=== PATIENT | female | born 1935 | race Caucasian/White ===

== ENCOUNTER 2018-01-15 11:08 | Emergency (ER) | payer MEDICARE ==
--- NOTE | 2018-01-15 18:11 | RAD ---
HISTORY: Left foot pain, injury COMPARISONS: None VIEWS: 3 , Frontal, lateral, and oblique views of the left foot FINDINGS: BONE DENSITY: There is diffuse osteopenia. BONES: There is no displaced fracture. JOINTS: There is no arthropathy. ALIGNMENT: There is no dislocation. SOFT TISSUES: There is soft tissue swelling of the forefoot. OTHER FINDINGS: None. IMPRESSION: 1. OSTEOPENIA. 2. SOFT TISSUE SWELLING. 3. NO ACUTE OSSEOUS INJURY. THE DEGREE OF OSTEOPENIA MAY MAKE A NONDISPLACED FRACTURE RADIOGRAPHICALLY OCCULT. IF SYMPTOMS PERSIST, RECOMMEND REPEAT IMAGING.
--- NOTE | 2018-01-15 21:21 | UC ---
- Progress Note Progress Note: Patient Name: STONE BARCLAY Medical Record#: [id number] Ordering Physician: [facility] Acct.#: [id number] : 1935 Age: 82 Sex: F Location: [facility] Exam Date: 01/15/18 ADM Status: PRE ER Order Information: FOOT LEFT 3+ VWS Accession Number: [id number] CPT: 46068 HISTORY: Left foot pain, injury COMPARISONS: None VIEWS: 3 , Frontal, lateral, and oblique views of the left foot FINDINGS: BONE DENSITY: There is diffuse osteopenia. BONES: There is no displaced fracture. JOINTS: There is no arthropathy. ALIGNMENT: There is no dislocation. SOFT TISSUES: There is soft tissue swelling of the forefoot. OTHER FINDINGS: None. IMPRESSION: 1. OSTEOPENIA. 2. SOFT TISSUE SWELLING. 3. NO ACUTE OSSEOUS INJURY. THE DEGREE OF OSTEOPENIA MAY MAKE A NONDISPLACED FRACTURE RADIOGRAPHICALLY OCCULT. IF SYMPTOMS PERSIST, RECOMMEND REPEAT IMAGING. <Electronically signed by Chilo Pineda MD in OV> 01/15/181807 Dictated By: Chilo Pineda MD Dictated Date/Time: 01/15/181807 Transcribed Date/Time: 01/15/18 1229 Copy to: CC:[facility]; Brook Ramirez MD Imaging - [facility] Imaging [facility] [address] [address] ph ([phone]) ph ([phone]) ph ([phone]) This report is only to be considered final once signed by the Provider(s) as displayed in the "<Electronically Signed by >" field (s). Absence of a signature indicates the report is in a draft status and still needs to be finalized. In the event this document was created by someone other than the signing Provider, the individual initiating the document will be listed in the "Entered by:" or "Dictated by:" mckeon. 1 of 1 Discharge - Sign-Out/Discharge Documenting (check all that apply): Post-Discharge Follow Up All imaging exams completed and their final reports reviewed: Yes - Discharge Plan Referrals: Brook Ramirez MD [Primary Care Provider] -
== END 2018-01-15 14:10 | disposition home or self-care (01) ==
LOC: UCCORT 12:18
DX: S90.32XA Contusion of left foot, initial encounter (principal); S93.602A Unspecified sprain of left foot, initial encounter; W19.XXXA Unspecified fall, initial encounter; Y93.9 Activity, unspecified; Y92.009 Unspecified place in unspecified non-institutional (private) residence as the place of occurrence of the external cause; M85.872 Other specified disorders of bone density and structure, left ankle and foot; I10 Essential (primary) hypertension
CPT/HCPCS: 99213; G0463

== ENCOUNTER 2019-03-13 14:16 | Emergency (ER) | payer MEDICARE ==
--- OUTSIDE RECORDS SUMMARY | 2019-03-13 14:49 | XMS REPORT | Continuity of Care Document ---
:1935 External Reference #:[id number] Author Name Angus Mitchell M.D. (transmitted by agent of provider Dwain Chinchilla) Address [address] [facility], [place] [address] Care Team Providers Name Role Phone Brook Ramirez MD - Internal Medicine Care Team Information Wine Steward/Stewardess Problems Active Problems Provider Date Alzheimer's disease Angus Mitchell M.D. Onset: 09/23/2018 Social History Type Date Description Comments Sex Unknown Tobacco Use Start: Unknown Never Smoked Cigarettes Smoking Status Reviewed: 01/27/19 Never Smoked Cigarettes ETOH Use Consumes 3 glasses of wine per week Tobacco Use Start: Unknown Patient has never smoked Recreational Drug Use Denies Drug Use Allergies, Adverse Reactions, Alerts Description No Known Drug Allergies Medications Active Medications SIG Qnty Indications Ordering Provider Date Memantine HCL 1 by mouth twice 60tabs G30.1 Angus Mitchell, 01/27/2019 5mg a day M.D. Tablets Fosamax take 1 tablet by Unknown 70mg Tablets mouth once weekly Aspirin 81 1 by mouth every Unknown 81mg day Tablets DR Lipitor 1 by mouth at Unknown 40mg Tablets bedtime Calcium Citrate + D 1 tab by mouth Unknown every day [id number] Tablets Vitamin D 1 Tab by mouth Unknown 1000Unit everyday Tablets Aricept 1 tab by mouth 90tabs Angus Mitchell, 10mg Tablets every night M.D. Latanoprost 1 drop every Unknown 0.005% night Solution Synthroid 1 by mouth every Unknown 50mcg day Tablets Lisinopril 1 by mouth every Unknown 10mg day Tablets Claritin 1 by mouth every 30caps Unknown 10mg day as needed Capsules Metoprolol Succinate 1 by mouth twice 30tabs Unknown ER a day 25mg Tablets ER 24HR Multivitamin Adult 1 by mouth every Unknown day Tablets Timolol Maleate 1 drop both eyes Unknown 0.5% every morning Solution History Medications Memantine HCL 1 by mouth at 90tabs G30.1 Angus Mitchell, 09/23/2018 - 5mg night HersonDApryl 01/27/2019 Tablets Immunizations Description No Information Available Vital Signs Date Vital Result Comment 01/27/2019 2:48pm Height 63 inches 5'3" Weight 111.25 lb Heart Rate 71 /min BP Systolic Sitting 127 mmHg BP Diastolic Sitting 68 mmHg Respiratory Rate 14 /min Body Temperature 98.3 F Pain Level 0 O2 % BldC Oximetry 96 % BMI (Body Mass Index) 19.7 kg/m2 09/23/2018 11:05am Height 63 inches 5'3" Weight 115.00 lb Heart Rate 87 /min BP Systolic 110 mmHg BP Diastolic 76 mmHg BMI (Body Mass Index) 20.4 kg/m2 Results Description No Information Available Procedures Description No Information Available Medical Devices Description No Information Available Encounters Type Date Location Provider Dx Diagnosis [facility]a [facility] Cannon disease with late [facility] onset Assessments Date Code Description Provider 01/27/2019 G30.1 Alzheimer's disease with late onset Angus Mitchell M.D. 09/23/2018 G30.1 Alzheimer's disease with late onset Angus Mitchell M.D. Plan of Treatment Future Appointment(s):06/02/2019 2:15 pm - Angus Mitchell M.D. at [facility]01/27/2019 - Angus Mitchell M.D.G30.1 Alzheimer' s disease with late onsetNew Medication:Memantine HCL 5 mg - 1 by mouth twice a dayFollow up:Follow up in 4 monthsRecommendations:Call me in 1 month. If you are doing ok, we will increase the Memantine further. The plan is to get you to 10mg twice a day. Functional Status Description No Information Available Mental Status Description No Information Available Referrals Description No Information Available
[2019-03-13 15:11] VITALS: BP 133/64
--- NOTE | 2019-03-13 15:22 | UC ---
Respiratory Complaint HPI - HPI Summary HPI Summary: Pt present with c/o gradual onset of cough, nasal congestion and ST X 3-4 days. Pt has dementia and lives with daughter. Pt's is currently in hospital due perforated bowel. Pt's daughter and recently had bronchitis. - History of Current Complaint Chief Complaint: UCRespiratory Stated Complaint: COUGH, CONGESTION Time Seen by Provider: 03/13/19 15:08 Hx Obtained From: Family/Transportation Project Manager Hx From Patient Unobtainable Due To: Dementia ?: No Onset/Duration: Gradual Onset, Lasting Days, Still Present Timing: Constant Severity Initially: Mild Severity Currently: Mild Pain Intensity: 0 Aggravating Factors: Exertion, Deep Breaths, Recumbent Position Alleviating Factors: Nothing Associated Signs And Symptoms: Positive: URI, Nasal Congestion, Hoarseness - Risk Factors Pulmonary Embolism Risk Factors: Negative Cardiac Risk Factors: Negative Tuberculosis Risk Factors: Negative - Allergies/Home Medications Allergies/Adverse Reactions: Allergies Allergy/AdvReac Type Severity Reaction Status Date / Time No Known Allergies Allergy Verified 03/13/19 14:58 Home Medications: Home Medications Donepezil TAB* [Aricept 5 MG TAB*] 10 mg PO DAILY 03/13/19 [History Confirmed ] Memantine HCl 5 mg PO BID 03/13/19 [History Confirmed 03/13/19] PMH/Surg Hx/FS Hx/Imm Hx Previously Healthy: Yes Cardiovascular History: Cardiac Disease Neurological History: Dementia - Surgical History Surgical History: Yes Surgery Procedure, Year, and Place: CABG x4. Aortic valve replacement. AAA repair. Gallblader. Cataracts. Appy. Hysterectomy. Left Mastecomy - Family History Known Family History: Positive: Other - no related gi illness. - Social History Occupation: Retired Lives: With Family Alcohol Use: Occasionally Substance Use Type: None Smoking Status (MU): Never Smoked Tobacco Have You Smoked in the Last Year: No - Immunization History Vaccination Up to Date: Yes Review of Systems All Other Systems Reviewed And Are Negative: Yes Constitutional: Positive: Fatigue Skin: Positive: Negative Eyes: Positive: Negative ENT: Positive: Sore Throat, Sinus Congestion Respiratory: Positive: Cough Cardiovascular: Positive: Negative Gastrointestinal: Positive: Negative Genitourinary: Positive: Negative Motor: Positive: Negative Neurovascular: Positive: Negative Musculoskeletal: Positive: Negative Neurological: Positive: Negative Psychological: Positive: Negative Is Patient Immunocompromised?: No Physical Exam Triage Information Reviewed: Yes Appearance: Well-Appearing Vital Signs: Initial Vital Signs Temp 99.8 F 03/13/19 14:59 Pulse 60 03/13/19 14:59 Resp 20 03/13/19 14:59 BP 133/64 03/13/19 14:59 Pulse Ox 100 03/13/19 14:59 Vital Signs Reviewed: Yes Eye Exam: Normal ENT: Positive: Nasal congestion Dental Exam: Normal Neck exam: Normal Neck: Positive: Supple, Nontender, No Lymphadenopathy Respiratory: Positive: Wheezing - RLL Cardiovascular Exam: Normal Musculoskeletal Exam: Normal Neurological Exam: Normal Psychological Exam: Normal Skin Exam: Normal Respiratory Course/Dx - Course Course Of Treatment: Due to pt's extremes of age and her dementia, I discussed with the pt's immediate caregiver/daughter the use of antibiotics vs viral illness. Pt's caregiver requested an antibiotic. - Differential Dx/Diagnosis Differential Diagnosis/HQI/PQRI: Bronchitis, Exacerbation Of COPD, Other - pneumonia Provider Diagnosis: Wheezing on inspiration, Cough in adult Discharge ED - Sign-Out/Discharge Documenting (check all that apply): Patient Departure All imaging exams completed and their final reports reviewed: No Studies - Discharge Plan Condition: Stable Disposition: HOME Prescriptions: Amoxicillin PO (*) [Amoxicillin 500 MG CAP*] 500 mg PO Q12H #20 cap Patient Education Materials: Acute Cough (ED), Wheezing (ED) Referrals: Brook Ramirez MD [Primary Care Provider] - If Needed - Billing Disposition and Condition Condition: STABLE Disposition: Home
== END 2019-03-13 15:33 | disposition home or self-care (01) ==
LOC: UCCORT 14:16
DX: R06.2 Wheezing (principal); R05 Cough; J02.9 Acute pharyngitis, unspecified; J34.89 Other specified disorders of nose and nasal sinuses; F03.90 Unspecified dementia, unspecified severity, without behavioral disturbance, psychotic disturbance, mood disturbance, and anxiety; Z95.1 Presence of aortocoronary bypass graft
CPT/HCPCS: 99212; G0463

== ENCOUNTER 2019-03-31 15:27 | Emergency (ER) | payer MEDICARE ==
--- OUTSIDE RECORDS SUMMARY | 2019-03-31 16:42 | XMS REPORT | Continuity of Care Document ---
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 Active Problems Provider Date Coronary arteriosclerosis Brook Ramirez MD Onset: 01/05/2013 Benign essential hypertension Brook Ramirez MD Onset: 01/05/2013 Hyperlipidemia Brook Ramirez MD Onset: 01/05/2013 Hypothyroidism Brook Ramirez MD Onset: 01/05/2013 Vitamin D deficiency Brook Ramirez MD Onset: 01/05/2013 Minimal cognitive impairment Brook Ramirez MD Onset: 11/23/2014 Social History Type Date Description Comments Sex Unknown ETOH Use Occasionally consumes alcohol Tobacco Use Start: Unknown Patient has never smoked Allergies, Adverse Reactions, Alerts Description No Known Drug Allergies Medications Active Medications SIG Qnty Indications Ordering Date Provider Shingrix 1 dose intramuscular 2doses Brook Ramirez MD 10/06/2017 50mcg then repeat in 4 Suspension Rec month Aspirin 1 by mouth every day Brook Ramirez MD 03/13/2017 81mg Tablets Lisinopril 1 by mouth every day 90tabs Brook Ramirez MD 12/13/2013 10mg Tablets L Prosthetic For Bra as directed for dx 2carlos enrique Ramirez MD 08/30/2013 mastectomy Mastecotmy Bra l sided for dx 2undixie Ramirez MD 08/18/2013 breast cancer and mastectomy Clobetasol as directed up to 120gm Brook Ramirez MD 01/05/2013 Propionate tid prn 0.05% Cream Levothyroxine Sodium 1 by mouth every day 90tabs Brook Ramirez MD 01/05/2013 50mcg Tablets Loratadine 1 po qd prn 30tabs Brook Ramirez MD 01/05/2013 10mg Tablets Thera Brook Ramirez MD 01/05/2013 Tablets Atorvastatin Calcium tab 1 by mouth every 90tabs Brook Ramirez MD 01/05/2013 day 40mg Tablets Vitamin D-3 1 po qd 100caps Brook Ramirez MD 01/05/2013 1000Unit Capsules Calcium Citrate + D3 1 tab po qd Brook Ramirez MD 01/05/2013 [id number] Tablets Latanoprost 1 gtt qpm both eyes 2.500ml Unknown 0.005% Solution Timolol Maleate 1 gtt qd lt Unknown 0.5% GFS Metoprolol Tartrate 1 by mouth twice a 180tabs Brook Ramirez MD day 25mg Tablets Aricept take 1 tablet at Unknown 10mg Tablets bedtime Memantine HCL 1 by mouth every hs Unknown 5mg Tablets Immunizations CPT Code Status Date Vaccine Lot # [id number] Given 03/13/2017 Influenza Virus (Quadrivalent)Splitvirus 3 Years [id number] Of Age And Older Q2037 Given 01/03/2016 Influenza Vaccine (Fluvirin) 3 Years Of Age Or [id number] Older 44637 Given 03/02/2015 Pneumococcal Conjugate Vaccine 13 Valent For [id number] Intramuscular Use Q2035 Given 02/09/2015 Influenza Virus (Quadrivalent)Splitvirus 3 Years [id number] Of Age And Older Q2037 Given 02/01/2014 Influenza Vaccine (Fluvirin) 3 Years Of Age Or [id number] Older 97888 Given 05/11/2013 Pneumovax Polyvalent Inj Im Q2038 Given 01/20/2013 Influenza Vaccine (Fluzone) Administered Age 3 [id number] And Older 47855 Given 04/28/2004 Pneumovax Polyvalent Inj Im Vital Signs Date Vital Result Comment 03/24/2019 3:07pm BP Systolic 130 mmHg BP Diastolic 80 mmHg Heart Rate 85 /min Respiratory Rate 18 /min Height 61.75 inches 5'1.75" Weight 112.00 lb BMI (Body Mass Index) 20.6 kg/m2 12/03/2018 4:01pm BP Systolic 120 mmHg BP Diastolic 80 mmHg Heart Rate 64 /min Height 60 inches 5'0" Weight 112.00 lb BMI (Body Mass Index) 21.9 kg/m2 O2 % BldC Oximetry 98 % Results Test Acquired Date Facility Test Result H/L Range Note CMP W/GFR 11/23/2018 Sodium 138 mmol/L 135-146 1 Potassium 4.2 mmol/L 3.5-5.3 Chloride 101 mmol/L 98-110 Carbon Dioxide 27 mmol/L 20-32 2 Calcium 10.0 mg/dL 8.6-10.4 Alkaline Phosphatase 68 U/L 33-130 Ast 23 U/L 10-35 Alt 15 U/L 6-29 Bilirubin,Total 0.7 mg/dL 0.2-1.2 Glucose 103 mg/dL High 65-99 3 Urea Nitrogen (BUN) 25 mg/dL 7-25 Creatinine 1.01 mg/dL High 0.60-0.88 4 BUN/Creatinine Ratio 24.6 High 6-22 Protein,Total 7.3 g/dL 6.1-8.1 Albumin 4.0 g/dL 3.6-5.1 Globulin,Calculated 3.3 g/dL 1.9-3.7 A/G Ratio 1.2 1.0-2.5 Egfr Non-Afr. Lao 51 ML/MIN/1.73M2 Low > Or = 60 Egfr 59 ML/MIN/1.73M2 Low > Or = 60 Lipid Panel 11/23/2018 Cholesterol 161 mg/dL <199 HDL Cholesterol 52 mg/dL >50 Cholesterol/HDL Ratio 3.1 CALC <5.0 LDL Chol,Calculated 89 mg/dL 0-100 5 Triglycerides 102 mg/dL <150 Non-HDL Cholesterol 109 mg/dL <130 6 CBC (H/H,RBC,Indices,WBC,PLT) 11/23/2018 WBC 5.5 thous/L 3.8-10.8 RBC 4.25 mill/L 3.80-5.10 Hemoglobin 13.1 g/dL 11.7-15.5 Hematocrit 39.9 % 35.0-45.0 MCV 93.9 FL 80.0-100.0 MCH 30.8 pg 27.0-33.0 MCHC 32.8 g/dL 32.0-36.0 RDW 12.6 % 11.0-15.0 Platelet Count 186 thous/L 140-400 MPV 10.3 FL 7.5-12.5 Laboratory test finding 11/23/2018 T4,Free 1.2 ng/dL 0.8-1.8 TSH 1.32 mIU/L 0.40-4.50 7 Creatine Kinase,Total 50 U/L 29-143 1 FASTING 2 Reference range for high altitude clients: 18-30 mmol/L 3 GLUCOSE REFERENCE RANGE BASED ON FASTING SPECIMEN. 4 The upper reference limit for Creatinine is approximately 13% higher for people identified as -Lao. 5 LDL-C is now calculated using the An calculation, which is a validated novel method providing better accuracy than the Friedewald equation in the estimation of LDL-C. Lazaro SS et al.DEVORAH.2013;310(54):9088-2386 Desirable range <100 mg/dL for primary prevention; <70 mg/dL for patients with CHD or diabetic patients with >or= 2 CHD risk factors. 6 For patients with diabetes plus 1 major ASCVD risk factor, treating to a non-HDL-C goal of <100 mg/dL (LDL-C of <70 mg/ dL) is considered a therapeutic option. 7 REFERENCE RANGES BELOW ARE APPLICABLE TO FEMALES FIRST TRIMESTER - 0.26 - 2.66 mIU/L SECOND TRIMESTER - 0.55 - 2.73 mIU/L THIRD TRIMESTER - 0.43 - 2.91 mIU/L Procedures Date Code Description Status 09/21/2015 [id number] Bone Mineral Density Test Completed 06/09/2015 [id number] Mammogram Completed 04/28/2009 [id number] Colonoscopy Completed Medical Devices Description No Information Available Encounters Type Date Location Provider Dx Diagnosis Office Visit 12/03/2018 4:15p Main Office Brook Ramirez MD N19 Unspecified kidney failure I11.9 Hypertensive heart disease without heart failure E78.5 Hyperlipidemia, unspecified E03.9 Hypothyroidism, unspecified I25.10 Athscl heart disease of [place] coronary artery w/o ang pctrs F03.90 Unspecified dementia without behavioral disturbance M81.0 Age-related osteoporosis w/o current pathological fracture Assessments Date Code Description Provider 03/24/2019 I11.9 Hypertensive heart disease without heart failure Brook Ramirez MD 03/24/2019 E78.5 Hyperlipidemia, unspecified Brook Ramirez MD 03/24/2019 E03.9 Hypothyroidism, unspecified Brook Ramirez MD 03/24/2019 I25.10 Atherosclerotic heart disease of [place] coronary Brook Ramirez MD artery without a 03/24/2019 F03.90 Unspecified dementia without behavioral disturbance Brook Ramirez MD 12/03/2018 N19 Unspecified kidney failure Brook Ramirez MD 12/03/2018 I11.9 Hypertensive heart disease without heart failure Brook Ramirez MD 12/03/2018 E78.5 Hyperlipidemia, unspecified Brook Ramirez MD 12/03/2018 E03.9 Hypothyroidism, unspecified Brook Ramirez MD 12/03/2018 I25.10 Atherosclerotic heart disease of [place] coronary Brook Ramirez MD artery without a 12/03/2018 F03.90 Unspecified dementia without behavioral disturbance Brook Ramirez MD 12/03/2018 M81.0 Age-related osteoporosis without current pathological Brook Ramirez MD fracture Plan of Treatment Future Appointment(s):07/14/2019 8:00 am - Nurse at Main Szzhvl4907/26/2019 2: 30 pm - Brook Ramirez MD at Main Zyokep7503/24/2019 - Brook Ramirez MDI11.9 Hypertensive heart disease without heart failureComments:STABLECONTINUE LOPRESSOR AND LISINOPRIL BMP WNL LAST VISIT, LABS NOT DONE ORDERED BEFORE THIS LLFMEF44.5 Hyperlipidemia, unspecifiedComments:LIPID PANEL EXCELLENTLDL LESS THAN 100CONT LIPITORLABS ORDERED 3-4 TKHFMDQ72.9 Hypothyroidism, unspecifiedComments:CONTINUE SYNTHROIDLABS NOT DONE MHHPHLZB68.10 Atherosclerotic heart disease of [place] coronary artery without aComments:HX OF CADCONT STATIN AND LOPRESSORMONITORED BY CIDUOIUIYUT82.90 Unspecified dementia without behavioral disturbanceComments:FO[facility] , BUT NOW WITH [facility]UROLOGY IN [facility] ON ARICEPT 10 MG HS.., ORDERED BY NEUROLOGYSTARTED ON NAMENDA HSAllComments:UA DONEBREAST, PELVIC,RECTAL,STOOL GUIAC DONERTO3-4 MONTHSCMP, CBC, LIPIDS, TSH,FT4 BEFORE VISIT Functional Status Description No Information Available Mental Status Description No Information Available Referrals Description No Information Available
--- OUTSIDE RECORDS SUMMARY | 2019-03-31 16:42 | XMS REPORT | Continuity of Care Document ---
:1935 External Reference #:[id number] Author Name Brook Ramirez MD (transmitted by agent of provider Halle Jose) Address [address] [place] [address] Care Team Providers Name Role Phone Brook Ramirez MD - Internal Medicine Care Team Information Stock Analyst [phone] Problems Active Problems Provider Date Coronary arteriosclerosis [...] Prosthetic For Bra as directed for dx 2undixie Ramirez MD 08/30/2013 mastectomy Mastecotmy Bra l sided for dx 2undixie Ramirez MD 08/18/2013 breast cancer and mastectomy Clobetasol as directed up to 120gm Brook Ramirez MD 01/05/2013 Propionate tid prn 0.05% Cream Levothyroxine Sodium 1 by mouth every day 90tabs Brook Ramirez MD 01/05/2013 50mcg Tablets Loratadine 1 po qd prn 30tabs Brook Ramirez MD 01/05/2013 10mg Tablets Thera Brook RingMD 01/05/2013 Tablets Atorvastatin Calcium tab 1 by mouth every 90tabs Brook Ramirez MD 01/05/2013 day 40mg Tablets Vitamin D-3 1 po qd 100caps Brook Ramirez MD 01/05/2013 1000Unit Capsules Calcium Citrate + D3 1 tab po qd Brook Ramirez MD 01/05/2013 [id number] Tablets Latanoprost 1 gtt qpm both eyes [...] Given 03/13/2017 Influenza Virus (Quadrivalent)Splitvirus 3 Years [id number] Of Age And Older Q2037 Given 01/03/2016 Influenza Vaccine (Fluvirin) 3 Years Of Age Or [id number] Older 30060 Given 03/02/2015 Pneumococcal Conjugate Vaccine 13 Valent For [id number] Intramuscular Use Q2035 Given 02/09/2015 Influenza Virus (Quadrivalent)Splitvirus 3 Years [id number] Of Age And Older Q2037 Given 02/01/2014 Influenza Vaccine (Fluvirin) 3 Years Of Age Or [id number] Older 62673 Given 05/11/2013 Pneumovax Polyvalent Inj Im Q2038 Given 01/20/2013 Influenza Vaccine (Fluzone) Administered Age 3 [id number] And Older 38284 Given 04/28/2004 Pneumovax Polyvalent Inj Im Vital [...] 1.9-3.7 A/G Ratio 1.2 1.0-2.5 Egfr Non-Afr. Senegalese 51 ML/MIN/1.73M2 Low > Or = 60 [...] approximately 13% higher for people identified as -Senegalese. 5 LDL-C is now calculated using the An calculation, which is a validated novel method providing better accuracy than the Friedewald equation in the estimation of LDL-C. Lazaro SILVA et al.DEVORAH.2013;310(67):1529-4171 Desirable range <100 mg/dL for primary prevention; [...] mIU/L Procedures Date Code Description Status 09/21/2015 [id number] Bone Mineral Density Test Completed 06/09/2015 [id number] Mammogram Completed 04/28/2009 [id number] Colonoscopy Completed Medical Devices Description No Information Available Encounters Type Date Location Provider Dx Diagnosis Office Visit 12/03/2018 4:15p Main Office Brook Ramirez MD N19 Unspecified kidney failure I11.9 Hypertensive heart disease without heart failure E78.5 Hyperlipidemia, unspecified E03.9 Hypothyroidism, unspecified I25.10 Athscl heart disease of [place] coronary artery w/o ang pctrs F03.90 Unspecified dementia without behavioral disturbance M81.0 Age-related osteoporosis w/o current pathological fracture Assessments Date Code Description Provider 12/03/2018 N19 Unspecified kidney failure Brook Ramirez MD 12/03/2018 I11.9 Hypertensive heart disease without heart failure Brook Ramirez MD 12/03/2018 E78.5 Hyperlipidemia, unspecified Brook Ramirez MD 12/03/2018 E03.9 Hypothyroidism, unspecified Brook Ramirez MD 12/03/2018 I25.10 Atherosclerotic heart disease of [place] coronary Brook Ramirez MD artery without a 12/03/2018 F03.90 Unspecified dementia without behavioral disturbance Brook Ramirez MD 12/03/2018 M81.0 Age-related osteoporosis without current pathological Brook Ramirez MD fracture Plan of Treatment No Information Available Functional Status Description No Information Available Mental Status Description No Information Available Referrals Description No Information Available
[2019-03-31 16:48] VITALS: BP 178/63
--- NOTE | 2019-03-31 17:06 | UC ---
Respiratory Complaint HPI - HPI Summary HPI Summary: 83-year-old woman comes in with a chief complaint of cough and chest congestion. Started about 4 days ago. Sputum today was green. She has had some rhinorrhea. No fevers measured. On March 13, 2019 patient diagnosed with pneumonia and treated with amoxicillin she took the amoxicillin for 10 days and did improve. Patient's not complaining of any shortness of breath. No pedal edema. - History of Current Complaint Chief Complaint: UCRespiratory Stated Complaint: COUGH,CONGESTION Time Seen by Provider: 03/31/19 16:56 Pain Intensity: 0 - Allergies/Home Medications Allergies/Adverse Reactions: Allergies Allergy/AdvReac Type Severity Reaction Status Date / Time No Known Allergies Allergy Verified 03/31/19 16:43 PMH/Surg Hx/FS Hx/Imm Hx Previously Healthy: Yes Endocrine History: Hypothyroidism, Dyslipidemia Cardiovascular History: Hypertension - Surgical History Surgical History: Yes Surgery Procedure, Year, and Place: CABG x4. Aortic valve replacement. AAA repair. Gallblader. Cataracts. Appy. Hysterectomy. Left Mastecomy - Family History Known Family History: Positive: Other - no related gi illness. - Social History Alcohol Use: Daily Alcohol Amount: glass of wine/day Substance Use Type: None Smoking Status (MU): Never Smoked Tobacco Have You Smoked in the Last Year: No - Immunization History Vaccination Up to Date: Yes Review of Systems All Other Systems Reviewed And Are Negative: Yes Constitutional: Positive: Other - SEE HPI Skin: Positive: Negative Eyes: Positive: Negative ENT: Positive: Other - SEE HPI Respiratory: Positive: Cough Cardiovascular: Positive: Negative Gastrointestinal: Positive: Negative Motor: Positive: Negative Neurovascular: Positive: Negative Musculoskeletal: Positive: Negative Neurological: Positive: Negative Psychological: Positive: Negative Is Patient Immunocompromised?: No Physical Exam Triage Information Reviewed: Yes Appearance: Well-Appearing, No Pain Distress, Well-Nourished Vital Signs: Initial Vital Signs Temp 98.1 F 03/31/19 16:45 Pulse 63 03/31/19 16:45 Resp 20 03/31/19 16:45 BP 178/63 03/31/19 16:45 Pulse Ox 100 03/31/19 16:45 Vital Signs Reviewed: Yes Eye Exam: Normal Eyes: Positive: Conjunctiva Clear ENT: Positive: Pharynx normal, TMs normal Neck: Positive: Supple Respiratory: Positive: Rhonchi Cardiovascular: Positive: RRR Musculoskeletal: Positive: Strength Intact, ROM Intact, No Edema Neurological: Positive: Alert, Muscle Tone Normal Psychological: Positive: Normal Response To Family, Age Appropriate Behavior Skin Exam: Normal Respiratory Course/Dx - Course Course Of Treatment: Journalism Instructor: Jason Merritt C ([id number]) Container Finisher: VALERIO ( NUANCE) Report Date: 03/31/2019 17:22:00 Report Status: Final ====== Start of Report Content Patient Name: STONE BARCLAY Medical Record#: [id number] Ordering Physician: Caesar Stanley MD Acct.#: [id number] : Age: 83 Sex: F Location: [facility] Exam Date: 03/31/191658 ADM Status: REG ER Order Information: CHEST PA LAT 2 VWS Accession Number: [id number] CPT: 43475 INDICATION: Productive cough, congestion, shortness of breath. COMPARISON: No relevant prior exams available on the [facility] PACS for comparison. TECHNIQUE: Dual energy PA and lateral views of the chest were obtained. REPORT: Costochondral calcifications noted. Elevated lung volumes and both diffuse mild prominence of the interstitial markings and patchy rarefaction of the mid to upper lung zone interstitial markings. No focal pulmonary lesion, compelling alveolar consolidation, pleural effusion, pneumothorax. Median sternotomy wires and mediastinal vascular clips. Negative for cardiomegaly. Unremarkable central pulmonary vasculature. Ectatic thoracic aorta. At the arch the aorta measures up to 4.5 cm diameter. LEFT axillary surgical clips. Bone density appears decreased throughout. IMPRESSION: #. Stigmata of obstructive lung disease. No acute cardiopulmonary process evident. #. Ectatic thoracic aorta. <Electronically signed by Jason Merritt MD in OV> 03/31/191718 Dictated By: Jason Merritt MD Dictated Date/Time: 03/31/191715 Transcribed Date/Time: 03/31/191715 Copy to: CC:Brook Ramirez MD; Caesar Stanley MD Imaging - [facility] Imaging - [facility] Imaging - [facility] [address] [address] ph [phone]) ph [phone]) ph ([phone]) End of Report Content ========= I discussed the x-rays with the patient and her daughter. Plan is continue symptomatic treatment. Prescription of doxycycline for 7 days was written in case the patient is not improving or worsening. If she does not come completely improved she is to follow-up with her primary care doctor. If she gets worse, the emergency department. - Differential Dx/Diagnosis Provider Diagnosis: Bronchitis Discharge ED - Sign-Out/Discharge Documenting (check all that apply): Patient Departure All imaging exams completed and their final reports reviewed: Yes - Discharge Plan Condition: Stable Disposition: HOME Prescriptions: DOXYcycline CAP(*) [DOXYcycline 100MG CAP(*)] 100 mg PO BID #14 cap Patient Education Materials: Acute Bronchitis (ED) Referrals: Brook Ramirez MD [Primary Care Provider] - Additional Instructions: FOLLOW UP WITH YOUR DOCTOR IF NOT COMPLETELY IMPROVED. GO TO THE EMERGENCY DEPARTMENT IF WORSE OR ANY QUESTIONS OR CONCERNS. - Billing Disposition and Condition Condition: STABLE Disposition: Home
== END 2019-03-31 17:43 | disposition home or self-care (01) ==
LOC: UCCORT 15:27
DX: J40 Bronchitis, not specified as acute or chronic (principal); I10 Essential (primary) hypertension
CPT/HCPCS: 71046; 99212; G0463